=== PATIENT | female | born 1980 | race Caucasian/White ===

== ENCOUNTER 2018-04-20 14:42 | Emergency (ER) | payer MEDICAID, OTHER ==
[~2018-04-20] VITALS: Ht 162.6 cm; Wt 65.0 kg
[~2018-04-20 14:42] MED LIST: keppra; valium
[2018-04-20] MEDS ORDERED: LEVETIRACETAM 750 MG in SODIUM CHLORIDE 0.9% 100 ML IV STA (15:44)
[2018-04-20] MEDS ORDERED: LEVETIRACETAM 500MG/5ML CUP PO ONE (16:30)
[2018-04-20 16:50] LABS: BASOPHILS % 1.4 % (0.0-2.0); EOSINOPHILS % 0.7 % (0.0-5.0); HEMATOCRIT. 41.1 % (36.0-48.0); HEMOGLOBIN. 13.4 g/dL (12.0-16.0); LYMPHOCYTES % 23.7 % (20.0-50.0); MEAN CORPUSCULAR VOLUME 85.6 fL (81.0-99.0); MEAN PLATELET VOLUME 7.8 fl (7.4-10.4); MONOCYTES % 11.2 % (2.0-8.0); PLATELET 295 x1000/uL (130-400); RED CELL DISTRIBUTION WIDTH 14.1 % (11.6-14.6)
[2018-04-20 16:55] LABS: CHLORIDE 107 mEq/L (98-107)
[2018-04-20 17:00] LABS: HCG SCREEN NEGATIVE
[2018-04-20] MEDS ORDERED: KCL 20MEQ/100ML PREMIX 100 ML IV ONE (17:15)
[2018-04-20] MEDS ORDERED: POTASSIUM CHLORIDE 20MEQ TABLET SR PO ONE (17:15)
[2018-04-21 00:38] VITALS: BP 135/78
== END 2018-04-21 02:21 | disposition home or self-care (01) ==
LOC: ER 14:42
DX: G40.909 Epilepsy, unspecified, not intractable, without status epilepticus (principal); E87.6 Hypokalemia; F31.9 Bipolar disorder, unspecified; Z88.5 Allergy status to narcotic agent; Z91.14 Patient's other noncompliance with medication regimen
CPT/HCPCS: 36415; 80053; 81025; 83735; 84132; 84703; 85025; 96365; 96366; 99285; J1953; J3480; J7050

== ENCOUNTER 2018-07-08 08:21 | Emergency (ER) | payer MEDICAID, OTHER ==
[~2018-07-08] VITALS: Ht 167.6 cm; Wt 62.0 kg
[2018-07-08] MEDS ORDERED: ACETAMINOPHEN 325MG TABLET PO STA (09:00)
[2018-07-08] MEDS ORDERED: LORAZEPAM 1MG TABLET PO ONE (09:00)
[2018-07-08] MEDS ORDERED: LEVETIRACETAM 500MG PREMIX 100 ML IV ONE (09:15)
[2018-07-08 09:29] LABS: CLARITY URINE CLEAR (CLEAR); COLOR URINE YELLOW (YELLOW); KETONES URINE NEGATIVE (NEGATIVE); LEUKOCYTE ESTERASE URINE NEGATIVE (NEGATIVE); NITRITE URINE NEGATIVE (NEGATIVE); OCCULT BLOOD URINE NEGATIVE (NEGATIVE); PROTEIN URINE NEGATIVE (NEGATIVE); SPECIFIC GRAVITY URINE 1.022 (1.005-1.030); UROBILINOGEN URINE 0.2 E.U./dL (0.2-1.0)
[2018-07-08 09:30] LABS: BASOPHILS % 1.2 % (0.0-2.0); EOSINOPHILS % 1.2 % (0.0-5.0); HEMATOCRIT. 36.3 % (36.0-48.0); HEMOGLOBIN. 11.7 g/dL (12.0-16.0); LYMPHOCYTES % 23.3 % (20.0-50.0); MEAN CORPUSCULAR VOLUME 83.6 fL (81.0-99.0); MEAN PLATELET VOLUME 7.8 fl (7.4-10.4); MONOCYTES % 6.4 % (2.0-8.0); NEUTROPHILS % 67.9 % (40.0-76.0); PLATELET 311 x1000/uL (130-400); RED BLOOD CELL COUNT 4.34 mill/uL (4.2-5.4); RED CELL DISTRIBUTION WIDTH 16.6 % (11.6-14.6)
[2018-07-08 09:31] LABS: CHLORIDE 110 mEq/L (98-107)
[2018-07-08 09:35] LABS: ETHANOL BLOOD < 10 mg/dL
[2018-07-08 10:02] LABS: *BARBITURATES SCREEN URINE NEGATIVE (NEGATIVE)
[2018-07-08 10:03] LABS: *AMPHETAMINES SCREEN URINE NEGATIVE (NEGATIVE); *COCAINE SCREEN URINE NEGATIVE (NEGATIVE); METHADONE URINE SCREEN NEGATIVE (NEGATIVE); OPIATES URINE SCREEN NEGATIVE (NEGATIVE)
[2018-07-08 10:04] LABS: CANNABINOID URINE SCREEN NEGATIVE (NEGATIVE); PHENCYCLIDINE URINE SCREEN NEGATIVE (NEGATIVE)
[2018-07-08 10:06] LABS: *BENZODIAZEPINES SCREEN URINE PRESUMTIVE POSITIVE (NEGATIVE)
[2018-07-08 13:21] VITALS: BP 124/81
== END 2018-07-08 13:14 | disposition home or self-care (01) ==
LOC: ER 08:21
DX: G40.909 Epilepsy, unspecified, not intractable, without status epilepticus (principal); F31.9 Bipolar disorder, unspecified; F41.9 Anxiety disorder, unspecified; Z59.0 Homelessness; Z91.81 History of falling; Z91.14 Patient's other noncompliance with medication regimen; Z98.890 Other specified postprocedural states; Z88.5 Allergy status to narcotic agent
CPT/HCPCS: 36415; 70450; 80053; 80305; 81003; 81025; 85025; 96365; 96366; 99284; G0482; J1953

== ENCOUNTER 2018-07-11 04:16 | Emergency (ER) | payer OTHER ==
[~2018-07-11] VITALS: Ht 170.2 cm; Wt 82.0 kg
[2018-07-11] MEDS ORDERED: SODIUM CHLORIDE 0.9% 1,000 ML IV ONE (04:28)
[2018-07-11] MEDS ORDERED: LEVETIRACETAM 500MG TABLET PO ONE (04:30)
[2018-07-11] MEDS ORDERED: LORAZEPAM 1MG TABLET PO ONE (04:30)
[2018-07-11 05:11] LABS: BASOPHILS % 0.9 % (0.0-2.0); CHLORIDE 111 mEq/L (98-107); EOSINOPHILS % 0.8 % (0.0-5.0); HEMATOCRIT. 35.9 % (36.0-48.0); LYMPHOCYTES % 44.8 % (20.0-50.0); MEAN CORPUSCULAR HEMOGLOBIN 27.4 pg (28.0-32.0); MEAN CORPUSCULAR VOLUME 82.4 fL (81.0-99.0); MEAN PLATELET VOLUME 7.8 fl (7.4-10.4); MONOCYTES % 8.8 % (2.0-8.0); NEUTROPHILS % 44.7 % (40.0-76.0); PLATELET 369 x1000/uL (130-400); RED BLOOD CELL COUNT 4.36 mill/uL (4.2-5.4); RED CELL DISTRIBUTION WIDTH 16.7 % (11.6-14.6)
[2018-07-11] MEDS ORDERED: LEVETIRACETAM 500MG PREMIX 100 ML IV ONE (05:15)
[2018-07-11] MEDS ORDERED: LORAZEPAM 2MG/ML CPJ IV ONE (05:15)
[2018-07-11] MEDS ORDERED: POTASSIUM CHLORIDE 20MEQ TABLET SR PO ONE (05:15)
[2018-07-11 05:18] LABS: ETHANOL BLOOD 239 mg/dL
[2018-07-11 05:20] LABS: CREATINE KINASE 247 IU/L (26-192)
[2018-07-11 05:26] LABS: PHENOBARBITAL 2.1 ug/mL (15.0-40.0)
[2018-07-11 05:27] LABS: CARBAMAZEPINE < 0.5 ug/mL (4-12)
[2018-07-11 05:45] LABS: HCG SCREEN NEGATIVE
[2018-07-11 10:43] VITALS: BP 110/75
== END 2018-07-11 11:21 | disposition home or self-care (01) ==
LOC: ER 04:16
DX: G40.909 Epilepsy, unspecified, not intractable, without status epilepticus (principal); E87.6 Hypokalemia; F10.10 Alcohol abuse, uncomplicated; Y90.7 Blood alcohol level of 200-239 mg/100 ml; Z91.19 Patient's noncompliance with other medical treatment and regimen; Z88.6 Allergy status to analgesic agent
CPT/HCPCS: 36415; 80053; 80156; 80165; 80184; 80185; 80307; 80329; 82550; 84443; 84703; 85025; 87186; 96365; 96375; 99283; J1953; J2060; J7030

== ENCOUNTER 2019-05-03 12:31 | Emergency (ER) | payer MEDICAID, OTHER ==
[~2019-05-03] VITALS: Ht 165.1 cm; Wt 60.0 kg
[2019-05-03 12:45] VITALS: BP 155/99
== END 2019-05-03 13:43 | disposition left against medical advice (07) ==
LOC: ER 12:31
DX: R56.9 Unspecified convulsions (principal); Z53.21 Procedure and treatment not carried out due to patient leaving prior to being seen by health care provider
CPT/HCPCS: 81025

== ENCOUNTER 2023-10-04 09:44 | Emergency (ER) | payer MEDICAID, OTHER ==
[~2023-10-04] VITALS: Ht 167.6 cm; Wt 82.0 kg
[2023-10-04 09:48] VITALS: O2SAT 99
[2023-10-04] MEDS: LEVETIRACETAM 1000MG PREMIX 100 ML IV ONE (10:15)
[2023-10-04 10:56] LABS: BASOPHILS % 0.9 % (0.0-2.0); DIFFERENTIAL COMMENT 0; EOSINOPHILS % 3.4 % (0.0-5.0); HEMATOCRIT. 32.2 % (36.0-48.0); HEMOGLOBIN. 10.1 g/dL (12.0-16.0); LYMPHOCYTES % 16.9 % (20.0-50.0); MEAN CORPUSCULAR HGB CONC 31.2 g/dL (31.0-37.0); MEAN CORPUSCULAR VOLUME 76.8 fL (81.0-99.0); MEAN PLATELET VOLUME 7.2 fl (7.4-10.4); MONOCYTES % 6.9 % (2.0-8.0); NEUTROPHILS % 71.9 % (40.0-76.0); PLATELET 379 x1000/uL (130-400); RED CELL DISTRIBUTION WIDTH 19.9 % (11.6-14.6); WHITE BLOOD COUNT 8.2 x1000/uL (4.5-11.0)
[2023-10-04 11:03] LABS: CHLORIDE 107 mEq/L (98-107); POTASSIUM 3.6 mEq/L (3.5-5.1); SODIUM 138 mEq/L (136-145)
[2023-10-04 11:04] LABS: CALCIUM 8.7 mg/dL (8.7-10.4); CARBON DIOXIDE 26 mEq/L (21-32)
[2023-10-04 11:07] LABS: HCG SCREEN NEGATIVE
[2023-10-04 11:09] LABS: CREATININE 0.8 mg/dL (0.6-1.0); GLUCOSE 77 mg/dL (70-105)
[2023-10-04 11:10] VITALS: BP 136/85; PULSE 74; RESP 20; TEMP 98.8
[2023-10-04 11:11] LABS: ALANINE AMINOTRANSFERASE 10 IU/L (10-49); ASPARTATE AMINOTRANSFERASE 22 IU/L (<34); ETHANOL BLOOD < 10 mg/dL (<10); UREA NITROGEN BLOOD < 5 mg/dL (9-23)
[2023-10-04 11:12] LABS: BILIRUBIN TOTAL 0.2 mg/dL (0.1-1.0); PROTEIN TOTAL 7.8 g/dL (6.0-8.3)
== END 2023-10-04 22:15 | disposition home or self-care (01) ==
LOC: ER 10:05
DX: G40.909 Epilepsy, unspecified, not intractable, without status epilepticus (principal); R53.1 Weakness; R42 Dizziness and giddiness
CPT/HCPCS: 80053; 80320; 84703; 85025; 36415; 96365; 99284; J1953; Z7610; G0480

== ENCOUNTER 2023-10-04 22:13 | Emergency (ER) | payer OTHER ==
[~2023-10-04] VITALS: Ht 157.5 cm; Wt 84.4 kg
[2023-10-04 22:36] VITALS: O2SAT 100
[2023-10-05 00:14] LABS: CHLORIDE 107 mEq/L (98-107); POTASSIUM 3.5 mEq/L (3.5-5.1); SODIUM 136 mEq/L (136-145)
[2023-10-05 00:15] LABS: CALCIUM 8.5 mg/dL (8.7-10.4); CARBON DIOXIDE 24 mEq/L (21-32)
[2023-10-05 00:19] LABS: HCG SCREEN NEGATIVE
[2023-10-05 00:20] LABS: CREATININE 0.7 mg/dL (0.6-1.0); GLUCOSE 72 mg/dL (70-105)
[2023-10-05 00:22] LABS: ACETAMINOPHEN < 2 ug/mL (10-30); ALANINE AMINOTRANSFERASE 9 IU/L (10-49); ALBUMIN 3.6 g/dL (3.2-4.8); ASPARTATE AMINOTRANSFERASE 24 IU/L (<34); BILIRUBIN TOTAL < 0.2 mg/dL (0.1-1.0); PROTEIN TOTAL 7.1 g/dL (6.0-8.3)
[2023-10-05 00:25] LABS: ETHANOL BLOOD < 10 mg/dL (<10); UREA NITROGEN BLOOD < 5 mg/dL (9-23)
[2023-10-05 00:46] LABS: BASOPHILS % 0.2 % (0.0-2.0); DIFFERENTIAL COMMENT 0; EOSINOPHILS % 4.7 % (0.0-5.0); HEMATOCRIT. 31.3 % (36.0-48.0); HEMOGLOBIN. 9.7 g/dL (12.0-16.0); LYMPHOCYTES % 15.5 % (20.0-50.0); MEAN CORPUSCULAR HEMOGLOBIN 23.6 pg (28.0-32.0); MEAN CORPUSCULAR VOLUME 76.1 fL (81.0-99.0); MONOCYTES % 13.3 % (2.0-8.0); NEUTROPHILS % 66.3 % (40.0-76.0); PLATELET 347 x1000/uL (130-400); RED BLOOD CELL COUNT 4.11 mill/uL (4.2-5.4); RED CELL DISTRIBUTION WIDTH 20.2 % (11.6-14.6); WHITE BLOOD COUNT 9.6 x1000/uL (4.5-11.0)
[2023-10-05 12:15] VITALS: BP 128/75; PULSE 75; RESP 15; TEMP 98.8
== END 2023-10-05 12:19 | disposition home or self-care (01) ==
LOC: ER 22:13
DX: R45.851 Suicidal ideations (principal); R56.9 Unspecified convulsions; Z20.822 Contact with and (suspected) exposure to COVID-19
CPT/HCPCS: 80053; 80307; 80329; 80320; 84703; 36415 ×2; 93005; 99285; 85025; 87426; Z7610; G0480

== ENCOUNTER 2023-11-12 18:42 | Emergency (ER) | payer OTHER ==
[~2023-11-12] VITALS: Ht 170.2 cm; Wt 78.0 kg
[2023-11-12 18:43] VITALS: TEMP 98.2; O2SAT 98
[2023-11-12] MEDS: LEVETIRACETAM 1000MG PREMIX 100 ML IV ONE (19:08)
[2023-11-12 20:07] LABS: BASOPHILS % 0.7 % (0.0-2.0); EOSINOPHILS % 2.9 % (0.0-5.0); HEMATOCRIT. 33.8 % (36.0-48.0); HEMOGLOBIN. 10.7 g/dL (12.0-16.0); LYMPHOCYTES % 37.3 % (20.0-50.0); MEAN CORPUSCULAR HEMOGLOBIN 25.1 pg (28.0-32.0); MEAN CORPUSCULAR HGB CONC 31.5 g/dL (31.0-37.0); MEAN CORPUSCULAR VOLUME 79.7 fL (81.0-99.0); MEAN PLATELET VOLUME 7.4 fl (7.4-10.4); MONOCYTES % 8.1 % (2.0-8.0); PLATELET 278 x1000/uL (130-400); RED BLOOD CELL COUNT 4.24 mill/uL (4.2-5.4); WHITE BLOOD COUNT 5.1 x1000/uL (4.5-11.0)
[2023-11-12 20:11] LABS: CHLORIDE 109 mEq/L (98-107); POTASSIUM 4.3 mEq/L (3.5-5.1); SODIUM 139 mEq/L (136-145)
[2023-11-12 20:12] LABS: CALCIUM 8.6 mg/dL (8.7-10.4); CARBON DIOXIDE 26 mEq/L (21-32)
[2023-11-12 20:17] LABS: CREATININE 0.9 mg/dL (0.6-1.0); GLUCOSE 110 mg/dL (70-105); UREA NITROGEN BLOOD 11 mg/dL (9-23)
[2023-11-12 20:19] LABS: ADD RBC MORPHOLOGY YES; CREATINE KINASE 40 IU/L (34-145); DIFFERENTIAL COMMENT 1
[2023-11-12 20:20] LABS: AMMONIA 37 uMol/L (<32)
[2023-11-12 20:22] LABS: ETHANOL BLOOD < 10 mg/dL (<10)
[2023-11-12 20:50] LABS: ANISOCYTOSIS 3+; PLATELET ESTIMATE NORMAL
[2023-11-13 00:41] VITALS: BP 127/84; PULSE 73; RESP 12
== END 2023-11-13 00:42 | disposition home or self-care (01) ==
LOC: ER 18:42
DX: R56.9 Unspecified convulsions (principal); Z98.890 Other specified postprocedural states
CPT/HCPCS: 80048; 80320; 82140; 82550; 85025; 36415; 70450; 93005; 96365; 99285; J1953; G0480

== ENCOUNTER 2023-11-17 15:07 | Emergency (ER) | payer OTHER ==
[~2023-11-17] VITALS: Ht 167.6 cm; Wt 78.0 kg
[2023-11-17 15:09] VITALS: O2SAT 98
[2023-11-17] MEDS: LORAZEPAM 0.5MG TABLET PO ONE (15:50)
[2023-11-17 15:57] LABS: BASOPHILS % 0.9 % (0.0-2.0); EOSINOPHILS % 2.4 % (0.0-5.0); HEMATOCRIT. 33.3 % (36.0-48.0); HEMOGLOBIN. 10.7 g/dL (12.0-16.0); LYMPHOCYTES % 37.5 % (20.0-50.0); MEAN CORPUSCULAR HEMOGLOBIN 26.2 pg (28.0-32.0); MEAN CORPUSCULAR HGB CONC 32.2 g/dL (31.0-37.0); MEAN CORPUSCULAR VOLUME 81.3 fL (81.0-99.0); MEAN PLATELET VOLUME 7.6 fl (7.4-10.4); NEUTROPHILS % 51.2 % (40.0-76.0); PLATELET 261 x1000/uL (130-400); RED BLOOD CELL COUNT 4.09 mill/uL (4.2-5.4); RED CELL DISTRIBUTION WIDTH 24.5 % (11.6-14.6); WHITE BLOOD COUNT 5.6 x1000/uL (4.5-11.0)
[2023-11-17 15:58] LABS: CARBON DIOXIDE 22 mEq/L (21-32); CHLORIDE 109 mEq/L (98-107); POTASSIUM 3.4 mEq/L (3.5-5.1); SODIUM 139 mEq/L (136-145)
[2023-11-17 16:04] LABS: CREATININE 0.7 mg/dL (0.6-1.0); ETHANOL BLOOD 29 mg/dL (<10); GLUCOSE 122 mg/dL (70-105); UREA NITROGEN BLOOD 10 mg/dL (9-23)
[2023-11-17 16:05] LABS: DIFFERENTIAL COMMENT 1
[2023-11-17 16:12] LABS: HCG SCREEN NEGATIVE
[2023-11-17 16:13] LABS: CLARITY URINE CLOUDY (CLEAR); COLOR URINE YELLOW (YELLOW); GLUCOSE URINE NEGATIVE (NEGATIVE); KETONES URINE NEGATIVE (NEGATIVE); LEUKOCYTE ESTERASE URINE 3+ (NEGATIVE); NITRITE URINE NEGATIVE (NEGATIVE); OCCULT BLOOD URINE NEGATIVE (NEGATIVE); PROTEIN URINE NEGATIVE (NEGATIVE); UROBILINOGEN URINE 0.2 E.U./dL (0.2-1.0)
[2023-11-17 16:21] LABS: *AMPHETAMINES SCREEN URINE NEGATIVE (NEGATIVE); *BARBITURATES SCREEN URINE PRESUMPTIVE POSITIVE (NEGATIVE); *BENZODIAZEPINES SCREEN URINE NEGATIVE (NEGATIVE); *COCAINE SCREEN URINE NEGATIVE (NEGATIVE); CANNABINOID URINE SCREEN NEGATIVE (NEGATIVE); ECSTASY MDMA SCREEN URINE NEGATIVE (NEGATIVE); METHADONE URINE SCREEN NEGATIVE (NEGATIVE); OPIATES URINE SCREEN NEGATIVE (NEGATIVE); PHENCYCLIDINE URINE SCREEN NEGATIVE (NEGATIVE)
[2023-11-17 17:02] VITALS: BP 141/76; PULSE 80; RESP 16; TEMP 98.6
[2023-11-17 17:38] LABS: RBC URINE 0-2 /hpf (0-2); WBC URINE TNTC /hpf (0-2)
[2023-11-17 17:39] LABS: BACTERIA URINE 1+; SQUAMOUS EPITHELIAL CELL URINE FEW /lpf (RARE/1+)
[2023-11-17] MEDS ORDERED: CEPH250C2 MT (21:01)
== END 2023-11-17 17:19 | disposition home or self-care (01) ==
LOC: ER 15:07
DX: F10.129 Alcohol abuse with intoxication, unspecified (principal); G40.909 Epilepsy, unspecified, not intractable, without status epilepticus; N39.0 Urinary tract infection, site not specified; F41.9 Anxiety disorder, unspecified; Z98.890 Other specified postprocedural states; Y90.1 Blood alcohol level of 20-39 mg/100 ml
CPT/HCPCS: 36415; 80048; 80305; 80320; 81003; 82542; 82962; 84703; 85025; 99283; G0480